=== PATIENT | female | born 1940 | race Caucasian/White ===

== ENCOUNTER → 2018-09-14 14:02 | Outpatient (CLI) | payer MEDICARE, OTHER ==
[2011-12-16 13:03] VITALS: BMI 33.7
== END | disposition home or self-care (01) ==
LOC: D.CT 09-09 15:30
DX: R05 Cough (principal)

== ENCOUNTER → 2018-11-03 08:09 | Outpatient (CLI) | payer MEDICARE, OTHER ==
[2011-12-16 13:03] VITALS: BMI 33.7
[~2018-11-03 08:09] MED LIST: AMBIEN10 MG PO; ATIVAN0.5 MG PO; DIOVAN320 MG PO; EFFEXOR XR75 MG PO; GLUCOPHAGE1000 MG PO; HYDROCODON-ACE1 EA10 PO; LEVOTHYROXINE75 MCG PO; NEURONTIN 300300 MG PO; OS-CAL500 MG PO; PROMETRIUM100 MG PO; SINGULAIR10 MG PO; SYMBICORT 16010.2 GM INH; VITAMIN D31000 UNIT PO
[2018-11-03 11:13] LABS: HEMOGLOBIN 12.4 g/dL (12-16); MCH 28.8 pg (26.0-34.0); MCHC 31.8 g/dL (31.0-37.0); MCV 90.7 fL (80.0-100.0); MEAN PLATELET VOLUME 11.2 fL (7.4-10.4); PLATELET COUNT 433 10x3/uL (130-400); RDW 14.7 % (11.5-14.5); WBC 10.5 10x3/uL (4.8-10.8)
[2018-11-03 12:24] LABS: BASOPHILS 2 % (0-2); EOSINOPHILS 7 % (0-7); LYMPHOCYTES 14 % (15-50); MONOCYTES 14 % (2-11); NEUTROPHILS 60 % (40-80)
[2018-11-03 12:25] LABS: PLATELET ESTIMATE INCREASED; ROULEAUX OCC
[2018-11-04 10:12] VITALS: BMI 35.5
[2018-11-04 12:20] LABS: ANA REFLEX - DIRECT Negative (Negative)
[2018-11-05 03:09] LABS: ANGIOTENSIN CONVERTING ENZYME 45 U/L (14-82)
[2018-11-06 14:08] LABS: FUNGAL - ASP FLAVUS Negative (Neg:<1:1); FUNGAL - ASP NIGER Negative (Neg:<1:1); FUNGAL - ASPER FUMIGATUS Negative (Neg:<1:1)
--- NOTE | 2018-11-07 10:55 | EC ---
PATIENT:MEGAN HASSAN DATE OF SERVICE: 11/03/18 SEX: F MEDICAL RECORD: [id number] DATE OF : 42 LOCATION:D.RT AGE OF PATIENT: 78 ADMISSION DATE: 11/03/18 REFERRING PHYSICIAN: INTERPRETING PHYSICIAN: JEANETTE BURGESS MD ECHOCARDIOGRAM REPORT ECHO CHARGES 4 ECHO COMPLETE Date: 11/03/18 CLINICAL DIAGNOSIS: PULMONARY HTN ECHOCARDIOGRAPHIC MEASUREMENTS (adult normal given) AC root (d.<3.7cm) 3.4 cm LV Septum d (<1.2 cm> 1.3 cm Valve Excursion 1.6 cm LV Septum (systole) 1.5 cm Left Atria (s.<4.0cm> 3.1 cm LVPW d(<1.2cm) 1.1 cm RV (d.<2.3cm) 2.8 cm LVPW (sytole) 2.0 cm LV diastole(<5.6CM) 4.5 cm MV E-F(>70mm/sec) cm LV systole 2.7 cm LVOT Diameter 1.7 cm MV exc.(>10mm) cm Est.ejection fraction (50-75%) % DOPPLER: LVIT cm/sec A 93.0 cm/sec E 76.0 cm/sec LA cm/sec RVSP 43.0 mmHg LVOT 129 cm/sec AOP1/2T m/s Asc. Ao 193 cm/sec RVOT 81.0 cm/sec RA cm/sec PA 109 cm/sec AV Gradient Peak 15.0 mmHg AV Mean 7.6 mmHg AV Area 1.9 cm MV Gradient Peak 5.7 mmHg MV Mean 2.0 mmHg MV Area cm COMMENTS: Medical Writer: Gloria MCNEIL Bioinformatics Support Specialist: 1 Dr. Burgess TAPE# PACS Pericardial Effusion N DATE OF SERVICE: 11/03/2018 PROCEDURE: Echocardiogram. FINDINGS: 1. Left ventricular chamber size is within normal limits. Left ventricular systolic function is normal. Overall ejection fraction estimated at 65%. 2. Left atrium, right atrium, and right ventricle chamber sizes are within normal limits. 3. Valvular structures have normal structure and motion. ECHOCARDIOGRAM REPORT [id number] MEGAN HASSAN 4. Doppler interrogation reveals mild mitral regurgitation, mild tricuspid regurgitation, no other valvular insufficiency or stenosis. Pulmonary systolic pressure is estimated 43 mmHg. 5. No evidence of pericardial effusion or left ventricular thrombus. TRANSINT:[id number] Voice Confirmation ID: [id number] DOCUMENT ID: [id number] JEANETTE BURGESS MD at 1055 CC: [id number] DICTATION DATE: 11/03/18 1628 WATER VALVE REPAIRER: 11/03/18 2334 DEP CLI 11/03/18 [place] [id number] [place] [id number]
== END | disposition home or self-care (01) ==
LOC: D.RT 08:00
PROVIDERS: ATTEND Internal Medicine Pulmonary Disease
DX: R06.02 Shortness of breath (principal); Z12.31 Encounter for screening mammogram for malignant neoplasm of breast; J98.6 Disorders of diaphragm; R59.0 Localized enlarged lymph nodes; I27.20 Pulmonary hypertension, unspecified

== ENCOUNTER → 2018-12-07 07:33 | Outpatient (CLI) | payer MEDICARE, OTHER ==
[~2018-12-07 07:33] MED LIST changes: +HYDROCHLOROTHIA25 MG PO
== END | disposition home or self-care (01) ==
LOC: D.CT 07:33
DX: R59.0 Localized enlarged lymph nodes (principal)

== ENCOUNTER 2018-12-08 08:32 | Inpatient (IN) | payer MEDICARE, OTHER ==
[2018-12-08] VITALS (15 sets, daily range): BP systolic 110–141; BP diastolic 54–87; BMI 35.5
[~2018-12-08] VITALS: Ht 160 cm; Wt 90.7 kg
[~2018-12-08 08:32] MED LIST changes: -HYDROCHLOROTHIA25 MG PO
[2018-12-08] MEDS ORDERED: HYDROCHLOROTHIA25 MG PO (09:32)
--- NOTE | 2018-12-08 11:03 | NUR ---
1030 PT WAS COMPLAINING OF BEING NERVOUS AND ASKING FOR MEDICATION. DR. LEMUS IN ROOM WITH PATIENT. RECEIVED VERBAL ORDER FOR VALIUM.
[2018-12-08 12:43] LABS: NORMAL PLASMA / APTT 35.3 SECONDS (22.8-39.4); NORMAL PLASMA / PROTHROMBIN 12.1 SECONDS (11.6-15.0)
--- NOTE | 2018-12-08 18:13 | NUR ---
PT COUGHED UP SMALL AMOUNT BLOOD TINGED SPUTUM. NO ADDITIONAL SYMPTOMS.
--- NOTE | 2018-12-08 18:26 | NUR ---
PT ASSISTED ON TO BEDPAN. STILL AWAITING INSULIN VIAL FROM PHARMACY. HAVE CALLED TWICE FOR IT.
--- NOTE | 2018-12-08 19:00 | NUR ---
Report recieved, shift assessment complete, please see flow sheets for details. C/O neck and incisional pain, provided ice pack. Assisted up to restroom. Tolerated activity well. No assistance needed for walking, only for getting up. Void noted. Adult incontinence brief provided. Incontinence noted on draw sheet, new one provided before back to bed. Denies any other needs. Hemodynamically stable. Bed low and locked, call light in reach. Will continue plan of care.
[2018-12-08 20:09] LABS: INR 1.01 (0.85-1.17); PROTIME 12.8 SECONDS (11.6-15.0)
--- NOTE | 2018-12-08 21:00 | NUR ---
Tolerated PO well. Repositioned for comfort. Denies any other needs. Bed low and locked, call light in reach. Continues to expectorate blood tinged sputum, monitoring this. Hemodynamically stable. Will continue plan of care.
--- NOTE | 2018-12-08 23:00 | NUR ---
Reassessment complete, please see flow sheets for details. No acute changes from previous assessment to note. Hemodynamically stable. Bed low and locked, call light in reach. Will continue plan of care.
[2018-12-09] VITALS (16 sets, daily range): BP systolic 101–141; BP diastolic 42–61; Ht 160 cm; Wt 90.7 kg
--- NOTE | 2018-12-09 01:00 | NUR ---
Up to restroom. Tolerated well. Hemodynamically stable. Will continue plan of care.
--- NOTE | 2018-12-09 03:00 | NUR ---
Reassessment complete, please see flow sheets for details. No acute changes to note. Hemodynamically stable. Bed low and locked, call light in reach. Will continue plan of care.
--- NOTE | 2018-12-09 05:00 | NUR ---
Went for PA & LAT Xray's. Tolerated activity well. Up to chair upon return. Denies any pain/needs. Will continue plan of care.
[2018-12-09 06:02] LABS: BASOPHILS 0.1 % (0-2); EOSINOPHILS 0.2 % (0-7); HEMATOCRIT 31.9 % (36.0-48.0); HEMOGLOBIN 10.2 g/dL (12-16); IMMATURE GRANULOCYTES 0.3 % (0-5); LYMPHOCYTES 12.4 % (15-50); MCH 28.3 pg (26.0-34.0); MCV 88.6 fL (80.0-100.0); MEAN PLATELET VOLUME 10.5 fL (7.4-10.4); MONOCYTES 7.8 % (2-11); NEUTROPHILS 79.2 % (40-80); PLATELET COUNT 289 10x3/uL (130-400)
[2018-12-09 06:03] LABS: WBC 12.4 10x3/uL (4.8-10.8)
[2018-12-09 06:08] LABS: INR 1.08 (0.85-1.17); PROTIME 13.5 SECONDS (11.6-15.0)
[2018-12-09 06:09] LABS: APTT 47.4 SECONDS (22.8-39.4)
[2018-12-09 06:17] LABS: ALBUMIN 2.9 g/dL (3.4-5.0); ANION GAP 8.5 mmol/L (8-16); BILIRUBIN - TOTAL 0.81 mg/dL (0.2-1.3); CALCIUM 8.3 mg/dL (8.5-10.1); CARBON DIOXIDE 33.9 mmol/L (21.0-32.0); POTASSIUM - SERUM 3.4 mmol/L (3.5-5.1); PROTEIN - SERUM 6.9 g/dL (6.4-8.2)
--- NOTE | 2018-12-09 07:15 | NUR ---
SHIFT REPORT RECEIVED. UP IN CHAIR. DENIES PAIN AT THIS TIME. SLIGHT DISCOMFORT ON RIJ SITE. CURRENTLY HAS PLASMOLYTE INFUSING AT 30ML/HR. ANTERIOR NECK INCISION WITH DRESSING C/D/I. AMBULATES TO BATHROOM WITH MINIMAL ASSIST. VSS. HR 68 NORMAL SINUS. NO FEVER NOTED. ANA'S ON BOTH LE. SHIFT ASSESSMENT COMPLETED. CALL LIGHT IN REACH. WILL CONTINUE TO MONITOR.
--- NOTE | 2018-12-09 07:27 | OP ---
PATIENT NAME: MEGAN HASSAN MEDICAL RECORD: [id number] :42 LOCATION:D.CVI D.CV02 ADMISSION DATE:12/08/18 SURGEON: WILLIE DELACRUZ MD DATE OF OPERATION: 12/08/2018 SURGEON: Willie Delacruz MD BRUSH CLEANER: Guy Morrison PROCEDURES PERFORMED: 1. Mediastinoscopy with biopsy. 2. Bronchoscopy. PREOPERATIVE DIAGNOSES: Mediastinal lymphadenopathy and hilar lymphadenopathy. POSTOPERATIVE DIAGNOSES: Mediastinal lymphadenopathy and hilar lymphadenopathy, likely granulomatous disease consistent with sarcoidosis. ANESTHESIA: General endotracheal anesthesia. ESTIMATED BLOOD LOSS: Minimal. COMPLICATIONS: None. SPECIMENS: Mediastinal lymph node for frozen section, permanent section, and AFB fungal routine aerobic and anaerobic pathology. CONDITION: Stable. DISPOSITION: CV ICU. OPERATIVE FINDINGS: 1. Friable right paratracheal and distal anterior tracheal lymph nodes removed in 2 small sections and 3 larger sections without significant hemorrhage. A section was cut and sent separately for cultures from the sterile field. 2. Bronchoscopy with significant extrinsic compression posteriorly limiting the visual field, but no right upper lobe or bronchus intermedius mucosal lesions. INDICATIONS: Mediastinal lymphadenopathy and dyspnea. DESCRIPTION OF PROCEDURE: The patient was brought to the operating suite. General anesthesia was obtained, the patient was prepped and draped. Transverse incision was made just above the sternal notch taken down to the subcutaneous tissue. The strap muscles were split in the midline and the pretracheal plane was entered. Blunt finger dissection between the innominate artery and the trachea was performed and large lymph nodes were encountered and palpated. The scope was inserted and under direct visualization, biopsies were taken. Hemostasis was ensured. The wound was irrigated. Hemostasis was again ensured. The wound was closed in 3 layers. Good Dermabond to the skin. Bronchoscopy was performed with extrinsic posterior collapse despite positive pressure ventilation, but no mucosal lesions seen in the region of the enlarged lymph nodes, incomplete study. The patient was taken to the CV ICU in stable condition. OPERATIVE REPORT [id number] MEGAN HASSAN TRANSINT:[id number] Voice Confirmation ID: [id number] DOCUMENT ID: [id number] WILLIE DELACRUZ MD at 0729 CC: IVANIA BRO MD [id number] DICTATION DATE: 12/08/18 1550 SCRAP COLLECTOR: 12/08/18 1602 ADM IN [facility] [address] [place] [id number]
--- NOTE | 2018-12-09 09:30 | NUR ---
NO ANCEF IN UNIT. PHARMACY NOTIFIED. WILL SEND ME A BAG SOON POSSIBLE.
--- NOTE | 2018-12-09 09:30 | NUR ---
PAIN REASSESSED AT THIS TIME. 12/07 MAINLY UNCOMFORTABLE WITH RIJ.
--- NOTE | 2018-12-09 09:46 | NUR ---
DR. ROGERS AT BEDSIDE. ORDERED PTT TO BE RECHECKED AT 1200PM. NEEDS RESULTS CALLED IN TO HER.
--- NOTE | 2018-12-09 10:13 | NUR ---
AMBULATED TO BATHROOM.
--- NOTE | 2018-12-09 11:57 | NUR ---
BLOOD GLUCOSE 196. 2 UNITS OF HUMULIN REG GIVEN PER SLIDING SCALE.
--- NOTE | 2018-12-09 12:25 | NUR ---
DR. JUNG AT BEDSIDE.
[2018-12-09 13:16] LABS: FUNGUS STAIN Final report (())
[2018-12-09 13:19] LABS: HEMATOCRIT 33.1 % (36.0-48.0); HEMOGLOBIN 10.8 g/dL (12-16)
--- NOTE | 2018-12-09 13:53 | NUR ---
PT ON ROOM AIR AIR AFTER PT WALKED SPO2 TO 85% PT PLACED ON 1 LPM SPO2 TO 93%
--- NOTE | 2018-12-09 14:13 | NUR ---
CVL REMOVED PER ORDERS. PT RESTING IN BED.
--- NOTE | 2018-12-09 16:44 | NUR ---
DISCHARGE INSTRUCTION REVIEWED WITH PATIENT. APPOINTMENT SET UP WITH DR. ROGERS ON DECEMBER 20 AT 1:45PM. PERSONAL BELONGINGS SENT WITH PATIENT. LEFT ON 1L OF O2 VIA NC. WHEELED OUT TO PERSONAL VEHICLE VIA WHEELCHAIR.
--- NOTE | 2018-12-09 18:56 | MORECARE ---
CASE MANAGEMENT DISCHARGE SUMMARY PATIENT: MEGAN HASSAN UNIT: [id number] ADM DATE: 12/08/18 AGE: 78 : 41 SEX: F [facility] AUTHOR: NEETU ORTIZ PHYSICIAN: REFERRING PHYSICIAN: RONI DELACRUZ MD DATE OF SERVICE: 12/09/18 Discharge Plan Patient Name: MEGAN HASSAN Facility: [facility]:[place] : 1940 Planned Disposition: Home Anticipated Discharge Date: Discharge Date: 12/09/2018 Expected LOS: Initial Reviewer: [email or web address] Initial Review Date: 12/09/2018 Generated: 12/09/18 7:55 pm External Providers External Provider: Raman Next Contact Date: Service Request Date: Service Type: Resolution: Reviewer: Comments: Patient Name: MEGAN HASSAN Page [phone] at 1856 All edits/amendments must be made on the electronic document DICTATION DATE: 12/09/181854 HEALTHCARE OR MEDICAL: MALACHI 12/09/181854 RPT#: [id number] DC DATE:12/09/18 STATUS: DIS IN [place] [id number] [place] [address] END OF REPORT
--- NOTE | 2018-12-09 19:02 | MORECARE ---
CASE MANAGEMENT DISCHARGE SUMMARY PATIENT: MEGAN HASSAN UNIT: [id number] ADM DATE: 12/08/18 AGE: 78 : 41 SEX: F ROOM/BED: D.[facility] AUTHOR: NEETU ORTIZ PHYSICIAN: REFERRING PHYSICIAN: RONI DELACRUZ MD DATE OF SERVICE: 12/09/18 Discharge Plan Patient Name: MEGAN HASSAN [facility] [facility] 1940 Planned Disposition: Home Anticipated Discharge Date: Discharge Date: 12/09/2018 Expected LOS: Initial Reviewer: [email or web address] Initial Review Date: 12/09/2018 Generated: 12/09/18 8:02 pm DCPIA - Discharge Planning Initial Assessment Updated by [email or web address]: Petty Quintanilla on 12/09/18 6:59 pm * Is the patient Alert and Oriented? Yes * How many steps to enter\exit or inside your home? * PCP AMANDA * Pharmacy [facility] - [facility] - MAIL ORDER * Preadmission Environment Home with Family * ADLs Independent * Other Equipment WALKER, WHEELCHAIR * List name and contact numbers for known caregivers / representatives who currently or will assist patient after discharge: MIRANDA GALARZA - DAUGHTER- [phone] * Verbal permission to speak to the caregivers and representatives has been obtained from the patient. Yes * Community resources currently utilized Home Health * Additional services required to return to the preadmission environment? No * Can the patient safely return to the preadmission environment? Yes * Has this patient been hospitalized within the prior 30 days at any hospital? No Last DP export: 12/09/18 5:55 p Patient Name: MEGAN HASSAN Page [phone] at 1902 All edits/amendments must be made on the electronic document DICTATION DATE: 12/09/181901 CHANCELLOR: MALACHI 12/09/181901 RPT#: [id number] DC DATE:12/09/18 STATUS: DIS IN [facility] [address] [place] [address] END OF REPORT
--- NOTE | 2018-12-09 19:11 | MORECARE ---
CASE MANAGEMENT DISCHARGE SUMMARY PATIENT: MEGNA HASSAN UNIT: [id number] ADM DATE: 12/08/18 AGE: 78 : 41 SEX: F ROOM/BED: D.02 AUTHOR: NEETU ORTIZ PHYSICIAN: REFERRING PHYSICIAN: RONI DELACRUZ MD DATE OF SERVICE: 12/09/18 Discharge Plan Patient Name: MEGAN HASSAN Facility: [facility]:[place] : 1940 Planned Disposition: Home Anticipated Discharge Date: Discharge Date: 12/09/2018 Expected LOS: Initial Reviewer: [email or web address] Initial Review Date: 12/09/2018 Generated: 12/09/18 8:11 pm Comments DCP- Discharge Planning Updated by [email or web address]: Petty Quintanilla on 12/09/18 6:[address] Patient Name: MEGAN HASSAN Admission Status: Elective Accout number: [id number] Admission Date: 12-08-2018 : 1940 Admission Diagnosis:LOCALIZED ENLARGED LYMPH NODES Attending: RONI DELACRUZ Current LOS: 1 Anticipated DC Date: Planned Disposition: Home Primary Insurance: MEDICARE A & B Discharge Planning Comments: CM met with patient at bedside. Patient states that she lives at home with family and plans on returning upon discharge. Patient denies any discharge needs at this time. Patient may need walk test for home 02. CM will continue to follow and assist as needed with discharge planning / needs. Box Order Person: Petty Quintanilla DCPIA - Discharge Planning Initial Assessment Updated by [email or web address]: Petty Quintanilla on 12/09/18 6:59 pm * Is the patient Alert and Oriented? Yes * How many steps to enter\exit or inside your home? * PCP AMANDA * Pharmacy [facility] - [email or web address] - MAIL ORDER * Preadmission Environment Home with Family * ADLs Independent * Other Equipment WALKER, WHEELCHAIR * List name and contact numbers for known caregivers / representatives who currently or will assist patient after discharge: MIRANDA GALARZA - DAUGHTER- [phone] * Verbal permission to speak to the caregivers and representatives has been obtained from the patient. Yes * Community resources currently utilized Home Health * Additional services required to return to the preadmission environment? No * Can the patient safely return to the preadmission environment? Yes * Has this patient been hospitalized within the prior 30 days at any hospital? No Last DP export: 12/09/18 6:02 p Patient Name: MEGAN HASSAN Page [phone] at 1910 All edits/amendments must be made on the electronic document DICTATION DATE: 12/09/181909 HOT DIP PLATER: MALACHI 12/09/181909 RPT#: [id number] DC DATE:12/09/18 STATUS: DIS IN [facility] [address] [place] [address] END OF REPORT
--- NOTE | 2018-12-09 19:37 | MORECARE ---
CASE MANAGEMENT DISCHARGE SUMMARY PATIENT: MEGAN HASSAN UNIT: [id number] ADM DATE: 12/08/18 AGE: 78 : 41 SEX: F ROOM/BED: D[facility] AUTHOR: DIANA,DOC PHYSICIAN: REFERRING PHYSICIAN: RONI DELACRUZ MD DATE OF SERVICE: 12/09/18 Discharge Plan Patient Name: MEGAN HASSAN Facility: [facility]:[place] : 1940 Planned Disposition: Home Anticipated Discharge Date: Discharge Date: 12/09/2018 Expected LOS: Initial Reviewer: [email or web address] Initial Review Date: 12/09/2018 Generated: 12/09/18 8:37 pm Comments DCP- Discharge Planning Updated by [email or web address]: Petty Quintanilla on 12/09/18 6:[address] Patient needing Home 02 set up. Patient requested to use [facility] for Home 02 . CM called and faxed records to [facility]. [facility] delivered 02 to patients room and home 02 will be delivered to home. CM will continue to follow and assist as needed with discharge planning / needs. DCP- Discharge Planning Updated by [email or web address]: Petty Qiuntanilla on 12/09/18 6:[address] Patient Name: MEGAN HASSAN Admission Status: Elective Accout number: [id number] Admission Date: 12-08-2018 : 1940 Admission Diagnosis:LOCALIZED ENLARGED LYMPH NODES Attending: RONI DELACRUZ Current LOS: 1 Anticipated DC Date: Planned Disposition: Home Primary Insurance: MEDICARE A & B Discharge Planning Comments: CM met with patient at bedside. Patient states that she lives at home with family and plans on returning upon discharge. Patient denies any discharge needs at this time. Patient may need walk test for home 02. CM will continue to follow and assist as needed with discharge planning / needs. Employee Relations Assistant: Petty Quintanilla DCPIA - Discharge Planning Initial Assessment Updated by [email or web address]: Petty Quintanilla on 12/09/18 6:59 pm * Is the patient Alert and Oriented? Yes * How many steps to enter\exit or inside your home? * PCP AMANDA * Pharmacy [facility] - [facility] - MAIL ORDER * Preadmission Environment Home with Family * ADLs Independent * Other Equipment WALKER, WHEELCHAIR * List name and contact numbers for known caregivers / representatives who currently or will assist patient after discharge: MIRANDA GALARZA - DAUGHTER- [phone] * Verbal permission to speak to the caregivers and representatives has been obtained from the patient. Yes * Community resources currently utilized Home Health * Additional services required to return to the preadmission environment? No * Can the patient safely return to the preadmission environment? Yes * Has this patient been hospitalized within the prior 30 days at any hospital? No Last DP export: 12/09/18 6:11 p Patient Name: MEGAN HASSAN Page [phone] at 1937 All edits/amendments must be made on the electronic document DICTATION DATE: 12/09/181935 GARMENT CUTTER: MALACHI 12/09/181935 RPT#: [id number] DC DATE:12/09/18 STATUS: DIS IN [facility] [address] [place] [address] END OF REPORT
[2018-12-12 13:10] LABS: ANGIOTENSIN CONVERTING ENZYME 44 U/L (14-82)
== END 2018-12-09 16:46 | disposition home or self-care (01) | DRG 814 ==
LOC: D.OPS 08:32 → D.CVICU 16:06
PROVIDERS: Internal Medicine Hematology & Oncology; Internal Medicine Pulmonary Disease; ADMIT Thoracic Surgery (Cardiothoracic Vascular Surgery); ATTEND Thoracic Surgery (Cardiothoracic Vascular Surgery)
PROC: 0WBC4ZX Excision of Mediastinum, Percutaneous Endoscopic Approach, Diagnostic (ICD-10-PCS; principal; 2018-12-08 09:30)
PROC: 0BJ08ZZ Inspection of Tracheobronchial Tree, Via Natural or Artificial Opening Endoscopic (ICD-10-PCS; 2018-12-08 09:30)
DX: R59.0 Localized enlarged lymph nodes (principal); J95.821 Acute postprocedural respiratory failure; J98.11 Atelectasis; D64.9 Anemia, unspecified; D72.829 Elevated white blood cell count, unspecified; E03.9 Hypothyroidism, unspecified; I10 Essential (primary) hypertension; J45.20 Mild intermittent asthma, uncomplicated; E11.9 Type 2 diabetes mellitus without complications; K76.89 Other specified diseases of liver; J30.9 Allergic rhinitis, unspecified

== ENCOUNTER → 2018-12-13 11:57 | Outpatient (CLI) | payer MEDICARE, OTHER ==
[2018-12-09 09:15] VITALS: BMI 35.4
[~2018-12-13 11:57] MED LIST changes: +HYDROCHLOROTHIA25 MG PO
[2018-12-13 12:36] LABS: BASOPHILS 0.2 % (0-2); EOSINOPHILS 3.8 % (0-7); HEMATOCRIT 34.1 % (36.0-48.0); IMMATURE GRANULOCYTES 0.7 % (0-5); LYMPHOCYTES 16.7 % (15-50); MCH 28.9 pg (26.0-34.0); MCHC 32.3 g/dL (31.0-37.0); MCV 89.5 fL (80.0-100.0); MONOCYTES 8.6 % (2-11); PLATELET COUNT 314 10x3/uL (130-400); RBC 3.81 10x6/uL (4.00-5.40); RDW 14.9 % (11.5-14.5); WBC 8.5 10x3/uL (4.8-10.8)
== END | disposition home or self-care (01) ==
LOC: D.LAB 11:57
PROVIDERS: ATTEND Thoracic Surgery (Cardiothoracic Vascular Surgery)
DX: D64.9 Anemia, unspecified (principal); R79.1 Abnormal coagulation profile

== ENCOUNTER → 2018-12-21 11:13 | Outpatient (CLI) | payer MEDICARE, OTHER ==
[2018-12-09 09:15] VITALS: BMI 35.4
[2018-12-21 12:54] LABS: APTT 50.5 SECONDS (22.8-39.4); INR 0.99 (0.85-1.17); PROTIME 12.6 SECONDS (11.6-15.0)
[2018-12-23 15:11] LABS: FACTOR V ACTIVITY 124 % (70-150); FACTOR VII ACTIVITY 141 % (51-186)
[2018-12-26 16:08] LABS: FACTOR VIII - APTT 37.7 sec (22.9-30.2); FACTOR VIII - APTT 1:1 NP 30.9 sec (22.9-30.2); FACTOR VIII ACTIVITY 162 % (57-163)
[2018-12-26 18:06] LABS: FACTOR VIII - APTT 1:1 60 MIN 34.8 sec (22.9-30.2)
== END | disposition home or self-care (01) ==
LOC: D.LAB 11:13
PROVIDERS: ATTEND Thoracic Surgery (Cardiothoracic Vascular Surgery)
DX: D68.9 Coagulation defect, unspecified (principal)